=== PATIENT | female | born 1950 | race Caucasian/White ===

== ENCOUNTER → 2016-07-18 | Outpatient (CLI) | payer OTHER, BC | LOC: BMCIMAGING 08:25 | DX: Z12.31 Encounter for screening mammogram for malignant neoplasm of breast (principal) | CPT/HCPCS: G0202 ==

== ENCOUNTER → 2016-07-29 | Outpatient (CLI) | payer OTHER, BC | LOC: FIMAGING 12:57 | PROVIDERS: ATTEND Nurse Practitioner Adult Health | DX: N60.01 Solitary cyst of right breast (principal) ==

== ENCOUNTER 2017-02-19 11:17 | Inpatient (IN) | payer OTHER, BC ==
[2017-02-19] MEDS ORDERED: ACETAMINOPHEN 500 MG TAB PO ONE (11:40)
[2017-02-19] MEDS ORDERED: IBUPROFEN 600 MG TAB PO ONE (12:10)
--- NOTE | 2017-02-19 12:24 | EDPHY ---
H & P Smoking Status: Never smoked Time Seen by Provider: 02/19/17 12:00 HPI/ROS: CHIEF COMPLAINT: Fever, cough, dysuria HISTORY OF PRESENT ILLNESS: 67-year-old female presents to the emergency department by private vehicle complaining of fevers and chills that began yesterday. She started having rhinorrhea and nasal congestion since yesterday as well. She also developed a cough. She denies chest pain or difficulty breathing. She has not received a flu shot this year. No known ill contacts. No recent travel. No rash. She also reports dysuria, urgency and frequency with urination over last 2-3 days. She has been drinking a large amount of cranberry juice and water. She has never had a kidney stone in the past. No history of previous pyelonephritis. She does have some mild lower back discomfort. No abdominal pain. No vomiting. No chest pain or difficulty breathing. REVIEW OF SYSTEMS: Constitutional: Subjective fevers, chills Eyes: No double or blurry vision. ENT: No sore throat. Nasal congestion. Respiratory: Cough, no shortness of breath Cardiac: No chest pain. Gastrointestinal: No abdominal pain, vomiting or diarrhea. Genitourinary: Dysuria, urgency, frequency Musculoskeletal: No neck or back pain. Skin: No rashes. Neurological: No headache. (Jess Tate) Past Medical/Surgical History: Hypertension, hypothyroidism (Lea,Jess M) Social History: [facility] [place] [facility] Physical Exam: General Appearance: Alert, no distress. Initial temperature 39.3degrees, heart rate 101, 93% on room air. Eyes: Pupils equal and round. Extraocular motions are all intact. ENT: Mouth: Mucous membranes moist. Respiratory: No wheezing, rhonchi, or rales, lungs are clear to auscultation. Cardiovascular: Regular rate and rhythm. Gastrointestinal: Abdomen is soft and nontender, no masses, no rebound or guarding, bowel sounds normal. Mild left-sided CVA tenderness. No right-sided CVA tenderness. Neurological: Alert and oriented x 3, cranial nerves II through XII grossly intact Skin: Warm and dry, no rashes. Musculoskeletal: Nontender to palpate along the cervical, thoracic or lumbar spine. Neck is supple. Extremities: Full range of motion and no peripheral edema. Psychiatric: Patient is oriented X 3, there is no agitation. (Jess Tate) Constitutional: Initial Vital Signs Temperature (C) 39.3 C H 02/19/17 11:20 Heart Rate 101 H 02/19/17 11:20 Respiratory Rate 18 02/19/17 11:20 Blood Pressure 113/64 02/19/17 11:20 O2 Sat (%) 93 02/19/17 11:20 O2 Delivery Mode Room Air Allergies/Adverse Reactions: morphine Allergy (Mild, Verified 02/19/17 11:26) GI oxycodone [From Percocet] Allergy (Mild, Verified 02/19/17 11:26) GI Home Medications: Medication Instructions Recorded Aspirin EC [Aspirin EC 81 mg (*)] 81 mg PO HS 02/19/17 Cholecalciferol (Vitamin D3) 2,000 unit PO HS 02/19/17 [Vitamin D3] Cranberry Fruit Concentrate [Azo 250 mg PO DAILY 02/19/17 Cranberry] Cyanocobalamin (Vitamin B-12) 1,000 mcg PO HS 02/19/17 [B-12] Estrogens,Conjugated [Premarin 0.625 mg PO DAILY 02/19/17 0.625 MG (*)] Herbals/Supplements -Info Only 1 ea PO DAILY 02/19/17 Levothyroxine [Synthroid 125 mcg 125 mcg PO DAILY06 02/19/17 (*)] Lisinopril/Hydrochlorothiazide 1 tab PO DAILY 02/19/17 [Zestoretic 20-25 mg Tablet] Multivitamins [Multivitamin (*)] 1 each PO HS 02/19/17 guaiFENesin [Mucinex 600 MG (*)] 600 mg PO DAILY 02/19/17 Medical Decision Making - Diagnostics Imaging: I viewed and interpreted images myself ED Course/Re-evaluation: 67-year-old female presents to the emergency department with fever, URI symptoms and UTI symptoms. She was given 1000 mg of acetaminophen p.o. and 600 mg of ibuprofen p. o. for her fever. Chest x-ray is pending. Urinalysis pending. Influenza PCR has been ordered and is pending. Influenza was negative. Chest x-ray reveals possible left lower lobe pneumonia. Given the patient is febrile with elevated white blood cell count of over 22,000 and possible left lower lobe pneumonia, the patient will be admitted to the hospital to Dr. Robbi Landeros. Creatinine is elevated at 1.5. BUN is elevated 26. The case was discussed with Dr. Kenny Kincaid, secondary supervising physician, who did not directly evaluate the patient but agrees with treatment and plan. Still awaiting urine specimen. She received IV normal saline. Her lactate was normal at 1.2. Blood cultures are pending. The patient has subjective urinary frequency and urgency with urination. Patient was given Levaquin 750 mg IV. We tried for over 4 hours to wait for urinalysis. Patient does not feel she has to urinate. She did receive 1 L of IV normal saline in the emergency department. (Jess Tate) I did not see this patient while she was in the emergency department. However her care was discussed with the PA while the patient was in the department. I agree with treatment plan and management (Kenny Kincaid) Differential Diagnosis: Including but not limited to influenza, viral upper respiratory infection, bronchitis, pneumonia, urinary tract infection, pyelonephritis, kidney stone, sepsis (Jess Tate) - Data Points Laboratory Results: Laboratory Results 02/19/17 11:45 02/19/17 11:45 Microbiology Results: MICROBIOLOGY 02/19/17 14:20 Blood Blood Culture - Preliminary Gram Negative Rohit 02/19/17 11:45 Blood Blood Culture - Preliminary Gram Negative Rohit 02/19/17 11:45 Blood Blood Panel (PCR) - Final Escherichia Coli Medications Given: Acetaminophen (Tylenol) 650 mg PO Q4HRS PRN PRN Reason: Pain, Mild/Fever, Can Take PO Stop: 08/18/17 15:10 Last Admin: 02/20/17 22:26 Dose: 650 mg Aspirin Buffered (Aspirin Ec) 81 mg PO HS JAYLEN Stop: 08/19/17 20:59 Last Admin: 02/20/17 19:35 Dose: 81 mg Cholecalciferol (Vitamin D) 2,000 units PO HS JAYLEN Stop: 08/19/17 20:59 Last Admin: 02/20/17 19:35 Dose: 2,000 units Enoxaparin Sodium (Lovenox) 40 mg SC DAILY JAYLEN Stop: 08/19/17 08:59 Last Admin: 02/20/17 08:07 Dose: 40 mg Estrogens Conjugated (Premarin) 0.625 mg PO DAILY JAYLEN Stop: 08/19/17 08:59 Last Admin: 02/20/17 08:07 Dose: 0.625 mg Guaifenesin (Mucinex) 600 mg PO DAILY JAYLEN Stop: 08/19/17 08:59 Last Admin: 02/20/17 08:07 Dose: 600 mg Ceftriaxone Sodium 2 gm/ (Dextrose) 50 mls @ 100 mls/hr IV DAILY JAYLEN PRN Reason: Protocol Stop: 03/22/17 11:59 Last Admin: 02/20/17 12:00 Dose: 50 mls Levothyroxine Sodium (Synthroid) 125 mcg PO DAILY06 JAYLEN Stop: 08/19/17 05:59 Last Admin: 02/20/17 05:01 Dose: 125 mcg Miscellaneous Medication (Cranberry Fruit Concentrate [Azo Cranberry]) 250 mg PO DAILY JAYLEN Stop: 08/19/17 08:59 Last Admin: 02/20/17 08:08 Dose: Not Given Multivitamins (Tab-A-Selin) 1 each PO HS [facility] Stop: 08/19/17 20:59 Last Admin: 02/20/17 19:35 Dose: 1 each Ondansetron HCl (Zofran) 4 mg IVP Q4HRS PRN PRN Reason: Nausea/Vomiting, Can't Take PO Stop: 08/18/17 15:10 Last Admin: 02/19/17 18:09 Dose: 4 mg Vitamin B Complex (Vitamin B12) 1,000 mcg PO HS [facility] Stop: 08/19/17 20:59 Last Admin: 02/20/17 19:34 Dose: 1,000 mcg Discontinued Medications Acetaminophen (Tylenol) 1,000 mg PO EDNOW ONE Stop: 02/19/17 11:41 Last Admin: 02/19/17 11:45 Dose: 1,000 mg Sodium Chloride (Ns) 1,000 mls @ 0 mls/hr IV EDNOW ONE; Wide Open PRN Reason: Protocol Stop: 02/19/17 14:10 Last Admin: 02/19/17 14:14 Dose: 1,000 mls Levofloxacin/Dextrose (Levaquin 750 Mg (Premix)) 150 mls @ 100 mls/hr IV EDNOW ONE PRN Reason: Protocol Stop: 02/19/17 16:31 Last Admin: 02/19/17 15:41 Dose: 150 mls Potassium Chloride/Dextrose/Sod Cl (D5w 1/2 Ns W/ 20 Kcl/L) 1,000 mls @ 100 mls /hr IV CONT JAYLEN Stop: 08/18/17 15:14 Last Admin: 02/20/17 08:07 Dose: 1,000 mls Levofloxacin/Dextrose (Levaquin 500 Mg (Premix)) 100 mls @ 100 mls/hr IV DAILY JAYLEN PRN Reason: Protocol Stop: 03/22/17 08:59 Last Admin: 02/20/17 08:06 Dose: 100 mls Ibuprofen (Motrin) 600 mg PO EDNOW ONE Stop: 02/19/17 12:11 Last Admin: 02/19/17 12:55 Dose: 600 mg Influenza Virus Vaccine Quadrival (Fluarix Quad ) 0.5 ml IM .ONCE ONE Stop: 02/19/17 16:52 Last Admin: 02/19/17 17:28 Dose: 0.5 ml Departure - Departure Disposition: [facility] Inpatient Acute Clinical Impression: Pneumonia Qualifiers: Pneumonia type: due to unspecified organism Laterality: left Lung location: lower lobe of lung Qualified Code(s): J18.1 - Lobar pneumonia, unspecified organism Condition: Good
[2017-02-19 13:58] LABS: % IMMATURE GRANULYOCYTES 1.2 % (0.0-1.1); ABSOLUTE IMMATURE GRANULOCYTES 0.26 10^3/uL (0.00-0.10); ADD DIFF? NO; ADD MORPH? NO; ADD SCAN? NO; ATYPICAL LYMPHOCYTE FLAG 0 (0-99); FRAGMENT RBC FLAG 0 (0-99); HEMATOCRIT 38.9 % (38.0-47.0); HEMOGLOBIN 13.6 g/dL (12.6-16.3); LEFT SHIFT FLG 10 (0-99); LIPEMIA HEMOLYSIS FLAG 90 (0-99); MEAN CELL HEMOGLOBIN 30.6 pg (27.9-34.1); MEAN CELL VOLUME 87.4 fL (81.5-99.8); MEAN PLATELET VOLUME 11.3 fL (8.7-11.7); PLATELET CLUMPS FLAG 30 (0-99); PLATELET COUNT 207 10^3/uL (150-400); RED BLOOD CELL COUNT 4.45 10^6/uL (4.18-5.33); RED CELL DISTRIBUTION WIDTH 14.3 % (11.5-15.2)
[2017-02-19 14:07] LABS: ANION GAP 15 mEq/L (8-16); CALCIUM 9.4 mg/dL (8.5-10.4); CARBON DIOXIDE 19 mEq/l (22-31); CHLORIDE 100 mEq/L (97-110); CREATININE 1.5 mg/dL (0.6-1.0); GLOMERULAR FILTRATION RATE 35; GLUCOSE 128 mg/dL (70-100); POTASSIUM 3.5 mEq/L (3.5-5.2); SODIUM 134 mEq/L (134-144)
[2017-02-19] MEDS ORDERED: NS 1,000 ML IV ONE (14:09)
[2017-02-19] MEDS ORDERED: ONDANSETRON DISINTEGRATING 4 MG TAB PO PRN (15:11)
[2017-02-19] MEDS ORDERED: ZOLPIDEM TARTRATE 5 MG TAB PO PRN (15:11)
[2017-02-19] MEDS ORDERED: ONDANSETRON 4 MG/2 ML VIAL IVP PRN (15:11)
--- NOTE | 2017-02-19 16:16 | GHP ---
[f rep st] HISTORY AND PHYSICAL DATE OF ADMISSION: 02/19/2017 CHIEF COMPLAINT: Fever and achy all over. HISTORY OF PRESENT ILLNESS: The patient is a 67-year-old white female who began to get a stomach ache 4 day prior to admission. Later that evening, she had symptoms of a bladder infection, characterized by pain and stinging when she urinated and urinary frequency almost every hour. She has had one bladder infection before in her life, and this felt the same. She took a laxative and had a bowel movement and that did help her stomach ache, but she continued to have urinary symptoms. Three days prior to admission, she started herself on qjsv-avy-lkduqhj cranberry tablets. That seemed to be helping a little, but she continued to have mild urinary symptoms. Then, 1 day prior to admission, she developed fever, chills, and generally felt worse. Her whole body was aching yesterday with fever and chills and occasional sweats. She also started getting a cough yesterday that was minimally productive. Last night, she woke frequently to urinate. Her cough is just a bit better today. It is dry and hacking. Her main complaint continues to be aching all over with fever and occasional chills. PAST MEDICAL HISTORY: Significant for: 1. Allergic rhinitis for which she used allergy medications frequently. 2. Hysterectomy. 3. Knee surgery bilaterally. 4. Shoulder surgery. 5. Postoperative hypoxia after shoulder surgery in 2009, requiring and overnight hospitalization after the surgery to monitor her oxygen level. 6. x3. 7. Hypothyroidism. 8. Hypertension. MEDICATIONS: Synthroid 0.125 mg daily, lisinopril HCT 20/25 daily, Premarin 0.625 mg daily, Zyrtec and Mucinex frequently. SOCIAL HISTORY: She lives at home with her . She has 3 children, all of whom live in [place]. She has several grandchildren. She is retired from the [employer]. She is a never-smoker. She has alcohol once or twice a month when she goes out to dinner. FAMILY HISTORY: Her father of leukemia. Her mother at age 82 of a blood clot in the hospital after being hospitalized for over a week. REVIEW OF SYSTEMS: CONSTITUTIONAL: Weight is stable. NEUROLOGIC: She has had a low-grade headache for the last few days, but nothing severe. ENT: Denies sinus congestion recently. Denies sore throat. RESPIRATORY: Has the cough mentioned above, but no shortness of breath. CARDIOVASCULAR: Denies chest pain or heart palpitations. GI: Has had some mild nausea and vomited once yesterday after she took some sort of akjz-ste-eazwcri medication that bothered her stomach. Low-grade nausea has persisted today and she has not eaten anything today. No diarrhea or constipation. : See HPI. MUSCULOSKELETAL: She has diffuse muscle aching. SKIN: She denies any rashes. NEUROLOGIC: She denies any focal neurologic deficits or lightheadedness. PHYSICAL EXAMINATION: GENERAL: She is a well-developed, woman who is lying on a gurney in the Emergency Department and does not appear to be in any acute distress. VITAL SIGNS: Blood pressure 113/64, heart rate 101, respiratory rate 18, oxygen saturation is 93% on room air, and a couple of hours later was 98% on room air, temperature 39.3 at the time of presentation to this emergency room. HEENT: Eyes: Pupils equal, round and reactive to light, conjunctivae are pink. Throat, mouth, oropharynx are benign. NECK: Supple without adenopathy or thyromegaly. LUNGS: Clear. HEART: Regular without murmur. ABDOMEN: Soft, nontender without masses or bruits. Bowel sounds are normoactive. EXTREMITIES: No edema. MUSCULOSKELETAL: She has no swollen joints and moves all extremities without problem. NEUROLOGIC: She is alert and oriented. Has no focal neurologic deficits. BACK: She has left CVA tenderness. There is no tenderness when I just palpate the muscle in that area , but only when I bang the area with my fist. SKIN: Warm and dry. DATABASE: Chest x-ray does not show any obvious acute findings to my eye. Radiologist notes that left basilar atelectasis "is suspected." Her WBC is significantly elevated at 22,000. Hemoglobin 13.6, platelets 207,000. Sodium is 134, potassium 3.5, chloride 100, CO2 19, BUN 26, creatinine 1.5, glucose 128. Flu swab is negative. lactate level is 1.2. Urinalysis is not yet available. IMPRESSION: 1. Sepsis based on high fever, elevated WBC, and typical symptoms. Likely source is her urine. She has been unable to urinate since arriving in the Emergency Department. She is culture receiving IV fluids. I anticipate starting Levaquin after she is able to give a urine sample. I cannot absolutely rule out a left lower lobe pneumonia as the source of her infection, but she is not at all hypoxemic and on my exam her lungs sound normal. She does not have pleuritic pain in the left flank area, but does have pain to percussion, which suggests to me that the source is more likely to be urinary tract infection than pneumona. 2. Suspect pyelonephritis. 3. Acute kidney injury with a mildly elevated creatinine. I do not have a baseline accessible to me. We will treat this with IV fluids. 4. History of hypertension. Hold blood pressure medications for now, since her blood pressure is excellent and she is moderately dehydrated. 5. Hypothyroidism, chronic. 6. Resuscitation status: She is full code. /[id number]/MODL MTDD
[2017-02-19] MEDS ORDERED: FLU VACC QS 2017-18 (3YR+)/PF 0.5 ML SYR (FLUARIX QUAD) IM ONE (16:51)
[2017-02-19] MEDS: D5W 1/2 NS W/ 20 KCl/L 1,000 ML IV SCH (17:30)
[2017-02-19 18:39] LABS: COLOR YELLOW; LEUKOCYTE ESTERASE,URINE 2+ (NEGATIVE); NITRITE,URINE NEGATIVE (NEGATIVE)
[2017-02-19 18:47] LABS: BACTERIA 4+ /hpf (NONE SEEN); RBC,URINE 25-50 /hpf (0-3); WBC,URINE 50-182 /hpf (0-3)
[2017-02-19] MEDS: ACETAMINOPHEN 325 MG TAB PO PRN (20:28)
[2017-02-20] MEDS: D5W 1/2 NS W/ 20 KCl/L 1,000 ML IV SCH ×2 (03:06→08:07)
[2017-02-20] MEDS: LEVOTHYROXINE 125 MCG TAB PO SCH (05:01)
[2017-02-20 05:17] LABS: % IMMATURE GRANULYOCYTES 0.8 % (0.0-1.1); ABSOLUTE IMMATURE GRANULOCYTES 0.12 10^3/uL (0.00-0.10); ADD DIFF? NO; ADD MORPH? NO; ADD SCAN? NO; ATYPICAL LYMPHOCYTE FLAG 0 (0-99); FRAGMENT RBC FLAG 10 (0-99); HEMATOCRIT 32.2 % (38.0-47.0); HEMOGLOBIN 10.8 g/dL (12.6-16.3); LEFT SHIFT FLG 20 (0-99); LIPEMIA HEMOLYSIS FLAG 80 (0-99); MEAN CELL HEMOGLOBIN 29.6 pg (27.9-34.1); MEAN CELL HEMOGLOBIN CONCENTR. 33.5 g/dL (32.4-36.7); MEAN CELL VOLUME 88.2 fL (81.5-99.8); MEAN PLATELET VOLUME 10.4 fL (8.7-11.7); PLATELET CLUMPS FLAG 0 (0-99); PLATELET COUNT 162 10^3/uL (150-400); RED BLOOD CELL COUNT 3.65 10^6/uL (4.18-5.33); RED CELL DISTRIBUTION WIDTH 14.1 % (11.5-15.2)
[2017-02-20 05:18] LABS: ALANINE AMINOTRANSFERASE 27 IU/L (9-52); ALBUMIN 2.7 g/dL (3.5-5.0); ALKALINE PHOSPHATASE 68 IU/L (38-126); ANION GAP 10 mEq/L (8-16); ASPARTATE AMINOTRANSFERASE 18 IU/L (14-46); BILIRUBIN,TOTAL 0.8 mg/dL (0.1-1.4); CALCIUM 7.8 mg/dL (8.5-10.4); CARBON DIOXIDE 21 mEq/l (22-31); CHLORIDE 99 mEq/L (97-110); CREATININE 1.5 mg/dL (0.6-1.0); GLOMERULAR FILTRATION RATE 35; GLUCOSE 121 mg/dL (70-100); POTASSIUM 3.6 mEq/L (3.5-5.2); SODIUM 130 mEq/L (134-144); TOTAL PROTEIN 5.5 g/dL (6.3-8.2)
[2017-02-20] MEDS: ENOXAPARIN 40 MG/0.4 ML SYR SC SCH (08:07)
[2017-02-20] MEDS: ESTROGENS,CONJUGATED 0.625 MG TAB PO SCH (08:07)
[2017-02-20] MEDS: guaiFENesin 600 MG TAB.ER PO SCH (08:07)
[2017-02-20] MEDS: CRANBERRY FRUIT 250 MG PO SCH (08:08)
--- NOTE | 2017-02-20 08:27 | HOSPPROG ---
Hospitalist Progress Note Assessment/Plan: patient is a 67-year-old female who presented the emergency room with fever and body aches. 3 days prior to admission she started vykh-qcg-lyoatqo cranberry tablets and seem to help. Today is my 1st encounter with the patient. Chart reviewed. * Sepsis likely the source is her urine leukocytosis has improved with antibiotics * E coli bacteremia blood culture is showing gram-negative rods in both bottles will ask Infectious Disease to get involved with her care * pyelonephritis On Levaquin awaiting sensitivities * acute kidney injury creatinine is 1.5 baseline is 0.7 likely due to hypotension avoid any nephrotoxic agents * hypertension currently hypotensive will hold bp meds * hyponatremia follow * anemia lower than her baseline but could also be dilutional * hyperglycemia stress induced * DVT prophylaxis low-molecular weight heparin Subjective: Carmen is feeling better since being admitted Objective: Vital Signs Temp Pulse Resp BP Pulse Ox 36.9 C 75 14 85/52 L 98 02/20/17 03:24 02/20/17 03:24 02/20/17 03:24 02/20/17 03:24 02/20/17 03:24 Laboratory Results 02/20/17 04:55 02/20/17 04:55 02/19/17 02/20/17 02/21/17 05:59 05:59 05:59 Intake Total 2506 Output Total 1550 Balance 956 - Physical Exam Constitutional: no apparent distress, appears nourished, not in pain Eyes: PERRL Ears, Nose, Mouth, Throat: hearing normal Cardiovascular: regular rate and rhythym, no murmur, rub, or gallop Respiratory: no respiratory distress Gastrointestinal: normoactive bowel sounds Skin: warm, normal color Musculoskeletal: full muscle strength Neurologic: AAOx3 Psychiatric: interacting appropriately, not anxious ICD10 Worksheet Patient Problems: Problems Problem Status Onset Pneumonia Acute
[2017-02-20] MEDS ORDERED: CRANBERRY FRUIT 250 MG PO SCH (09:00)
[2017-02-20] MEDS ORDERED: ENOXAPARIN 30 MG/0.3 ML SYR SC SCH (09:00)
[2017-02-20] MEDS ORDERED: levOFLOXACIN 500 MG/DEXTROSE 100 ML IV SCH (09:00)
[2017-02-20] MEDS: ACETAMINOPHEN 325 MG TAB PO PRN ×3 (10:10→22:26)
[2017-02-20] MEDS: cefTRIAXone 2 GM in D5W 50 ML IV SCH (12:00)
--- NOTE | 2017-02-20 13:19 | GCON ---
[f rep st] CONSULTATION INFECTIOUS DISEASE CONSULTATION DATE OF CONSULTATION: 02/20/2017 REQUESTING PROVIDER: Chiquita Viera, Nurse Practitioner. REASON FOR CONSULTATION: E coli sepsis. HISTORY OF PRESENT ILLNESS: Patient is a 67-year-old female with a past medical history of hypertens ion and remote urinary tract infection, who I am asked to see in consultation for sepsis associated w ith E coli bacteremia. The patient describes developing "stomach pain" last week. She describes thi s as being pain in her left lower quadrant. This was followed by symptoms of dysuria and urinary erasto quency. Subsequently, she developed fever and shaking chills, with associated nausea and limited ora l intake. She does not describe having vomiting or diarrhea. Based on the presence of fever and sha stephanie chills, she sought care in the emergency department yesterday. Evaluation revealed a white coun t of 22,000, with urinalysis showing 25 to 50 red blood cells and 50 to 182 white blood cells, with 4 + bacteria. Flu testing by PCR was negative. Blood cultures obtained at the time of admission are n ow showing 2 of 2 sets with E coli. The patient is receiving empiric levofloxacin. She notes that s he does not feel any significant clinical improvement since the time of admission. She describes hav ing a past episode of uncomplicated UTI approximately 20 years ago. Venous lactate obtained yesterda y was 1.2. Given the above findings, I am now asked to assist in her ongoing management. PAST MEDICAL HISTORY: Hypertension, hypothyroidism, UTI. PAST SURGICAL HISTORY: Hysterectomy, , knee surgery, shoulder surgery. CURRENT MEDICATIONS: Levofloxacin 500 mg IV daily, aspirin 81 mg p.o. daily, Lovenox 40 mg subcu mac ly, vitamin D 2000 units p.o. q.h.s., Premarin 0.625 mg p.o. daily, Mucinex 600 mg p.o. daily, Synthr oid 125 mcg p.o. daily, AZO cranberry p.o. daily, multivitamin p.o. daily, vitamin B12 1000 mcg p.o. q.h.s. ALLERGIES: Morphine and oxycodone associated with vomiting, which represents intolerance rather than allergy. SOCIAL HISTORY: Patient does not smoke, drink alcohol, or use drugs. FAMILY HISTORY: Father of leukemia. REVIEW OF SYSTEMS: Outside that noted in the HPI, the remainder of 10-system review is unremarkable, except for some relief of symptoms noted with use of AZO cranberry acot-zvm-qsovlpr, as well as some symptoms of bronchitis which she typically has on a long-term basis. PHYSICAL EXAMINATION: VITAL SIGNS: Temperature maximum 39.3, temperature current 37.2, heart rate 8 4, respiratory rate 16, blood pressure 1/63, oxygen saturation 93% on 1 L. GENERAL: Patient is well nourished, well developed, with fatigued appearance; she appears nontoxic. HEENT: There is no scle ral icterus, conjunctival injection, or conjunctival petechiae. Oropharynx shows slightly dry mucous membranes. Dentition is in fair repair. There is no nasal discharge. There is no tenderness over the frontal, maxillary, or mastoid area. NECK: Supple without palpable lymphadenopathy or thyromega ly. CHEST: Clear to auscultation bilaterally without adventitious sounds. Respiratory effort is no rmal. CARDIOVASCULAR: Regular rate and rhythm without murmurs, gallops, or rubs. ABDOMEN: Soft, n ontender, nondistended. There is no palpable organomegaly. Bowel sounds are present. BACK: There is left-sided CVA tenderness present. MUSCULOSKELETAL: There is no cyanosis, clubbing, or edema. S KIN: No rashes are present. The skin is diffusely warm to palpation. There is mild diaphoresis pre sent. There are no stigmata of endocarditis. LYMPHATICS: No cervical or supraclavicular nodes palp able. NEUROLOGIC: Patient is alert and interacts appropriately examiner. Cranial nerves 2 through 12 are grossly intact. Sensation is grossly intact. Muscle tone and bulk are normal. LABORATORY DATA: White blood cell count 14.7, hematocrit 32.2, platelets 162, neutrophils 80%, lymph ocytes 12%. Serum creatinine is 1.5. AST 18, ALT 27, bilirubin 0.8, alkaline phosphatase 68, albumi n 2.7. Urinalysis as outlined in the History of Present Illness. Flu by PCR is negative. Venous la ctate is 1.2. Chest x-ray shows left basilar atelectasis. Blood culture showing 2 of 2 sets with E coli; urine culture was not obtained. IMPRESSION: Sepsis due to Escherichia coli bacteremia, likely associated with left-sided pyelonephri tis: Clinical findings are most compatible with left-sided pyelonephritis. Blood cultures now show both sets with Escherichia coli, which would be typical for this entity. Given local antibiogram, wi ll change levofloxacin to ceftriaxone while susceptibilities are pending, given lower likelihood of d ecreased ceftriaxone susceptibility based on local antibiogram. The patient did initially have left lower quadrant pain, which also places diverticulitis in the differential diagnosis, although suspect this pain was more likely associated pyelonephritis, given presence of costovertebral angle tenderne ss. RECOMMENDATIONS: 1. Ceftriaxone 2 g IV q.24 hours pending blood culture susceptibility. 2. Discontinue levofloxacin. 3. Follow clinical response to above measures. 4. Clinical findings and treatment plan were reviewed with patient and today. Thank you for this consultation. We will continue to follow the patient with you. /[id number]/MODL
--- NOTE | 2017-02-20 15:08 | ASMTCMCOM ---
CM Note CM Note Notes: Pt is a 67 y/o female admitted w/ fever and PNA. Pt has sepsis and currently being treated w/ caftriaxone. Pt will most likely discharge independent when medically stable w/ supportive . No therapies ordered at this time. CM available for changes. Date Signed: 02/20/2017 03:08 PM Electronically Signed By:MANDY Mccormack
[2017-02-20] MEDS: CYANO/VITAMIN B12 1000 MCG TAB PO SCH (19:34)
[2017-02-20] MEDS: CHOLECALCIFEROL VIT D3 2,000 UNITS TAB/CAP PO SCH (19:35)
[2017-02-20] MEDS: MULTIVITAMINS 1 EACH TAB PO SCH (19:35)
[2017-02-20] MEDS: ASPIRIN EC 81 MG TAB PO SCH (19:35)
[2017-02-20] MEDS ORDERED: NON-FORMULARY NEW DRUG (Cholecalciferol (Vitamin D3) [Vitamin D3] 2,000 UNIT) PO SCH (21:00)
[2017-02-20] MEDS ORDERED: NON-FORMULARY NEW DRUG (Cyanocobalamin (Vitamin B-12) [B-12] 1,000 MCG) PO SCH (21:00)
[2017-02-21] MEDS ORDERED: traMADol 50 MG TAB PO PRN (00:31)
[2017-02-21] MEDS: NS 1,000 ML IV SCH ×2 (00:52→09:36)
[2017-02-21] MEDS: LEVOTHYROXINE 125 MCG TAB PO SCH (04:42)
[2017-02-21 04:48] LABS: % IMMATURE GRANULYOCYTES 0.8 % (0.0-1.1); ABSOLUTE IMMATURE GRANULOCYTES 0.06 10^3/uL (0.00-0.10); ADD DIFF? NO; ADD MORPH? NO; ADD SCAN? NO; ATYPICAL LYMPHOCYTE FLAG 0 (0-99); FRAGMENT RBC FLAG 0 (0-99); HEMATOCRIT 30.9 % (38.0-47.0); HEMOGLOBIN 10.5 g/dL (12.6-16.3); LEFT SHIFT FLG 10 (0-99); LIPEMIA HEMOLYSIS FLAG 90 (0-99); MEAN CELL HEMOGLOBIN 29.7 pg (27.9-34.1); MEAN CELL VOLUME 87.5 fL (81.5-99.8); MEAN PLATELET VOLUME 10.8 fL (8.7-11.7); PLATELET CLUMPS FLAG 20 (0-99); PLATELET COUNT 150 10^3/uL (150-400); RED BLOOD CELL COUNT 3.53 10^6/uL (4.18-5.33); RED CELL DISTRIBUTION WIDTH 14.1 % (11.5-15.2)
[2017-02-21 04:57] LABS: ANION GAP 6 mEq/L (8-16); CALCIUM 8.6 mg/dL (8.5-10.4); CARBON DIOXIDE 21 mEq/l (22-31); CHLORIDE 106 mEq/L (97-110); CREATININE 1.1 mg/dL (0.6-1.0); GLOMERULAR FILTRATION RATE 50; GLUCOSE 97 mg/dL (70-100); POTASSIUM 3.9 mEq/L (3.5-5.2); SODIUM 133 mEq/L (134-144)
[2017-02-21] MEDS: cefTRIAXone 2 GM in D5W 50 ML IV SCH (09:21)
[2017-02-21] MEDS: guaiFENesin 600 MG TAB.ER PO SCH (09:36)
[2017-02-21] MEDS: ESTROGENS,CONJUGATED 0.625 MG TAB PO SCH (09:39)
[2017-02-21] MEDS: ENOXAPARIN 40 MG/0.4 ML SYR SC SCH (09:43)
--- NOTE | 2017-02-21 09:58 | PCMIDPN ---
Assessment/Plan: Assessment/plan: 1. E. coli sepsis likely secondary to left Pyelonephritis: - Awaiting sensitivities on E. coli - currently on Cefriaxone - Wbc improved -Clinically improved today as well - Reviewed lab results and pending data with patient - Creatinine improved Meds Ceftraixone 2g daily-02/20/17 Subjective: Aebrile. Feels better today than last night. lasst night had nausea, abd pain and generally wasn't feeling well. Today had light breakfast. dry cough. denies sob. denies diarrhea. Objective: Vital Signs Temp Pulse Resp BP Pulse Ox 37.1 C 71 20 101/61 97 02/21/17 07:29 02/21/17 07:29 02/21/17 07:29 02/21/17 07:29 02/21/17 07:29 Laboratory Results 02/21/17 04:31 02/21/17 04:31 02/20/17 02/21/17 02/22/17 05:59 05:59 05:59 Intake Total 2506 0 Output Total 1550 600 Balance 956 -600 - Physical Exam General Appearance: alert, no apparent distress Respiratory: lungs clear Cardiac/Chest: regular rate, rhythm Extremities: No swelling Abdomen: normal bowel sounds, non-tender, soft, No distended Back: No CVA tenderness Skin: No erythema ICD10 Worksheet Patient Problems: Problems Problem Status Onset Pneumonia Acute
[2017-02-21] MEDS: ACETAMINOPHEN 325 MG TAB PO PRN ×3 (10:12→20:41)
[2017-02-21] MEDS: CRANBERRY FRUIT 250 MG PO SCH (10:46)
--- NOTE | 2017-02-21 10:48 | HOSPPROG ---
Hospitalist Progress Note Assessment/Plan: patient is a 67-year-old female who presented the emergency room with fever and body aches. 3 days prior to admission she started choc-jma-sibkiws cranberry tablets and seem to help. * Sepsis likely the source is her urine leukocytosis has improved with antibiotics * E coli bacteremia Ceftriaxone #2 * pyelonephritis/left sided * acute kidney injury much improved w hydration creat is 1.1 * hypertension bp is low *Hypotension will give her a bolus of normal saline *constipation * hyponatremia improved w normal saline * anemia lower than her baseline l * hyperglycemia resolved * DVT prophylaxis low-molecular weight heparin Subjective: Carmen is feeling better today. Objective: Vital Signs Temp Pulse Resp BP Pulse Ox 37.1 C 71 20 101/61 97 02/21/17 07:29 02/21/17 07:29 02/21/17 07:29 02/21/17 07:29 02/21/17 07:29 Laboratory Results 02/21/17 04:31 02/21/17 04:31 02/20/17 02/21/17 02/22/17 05:59 05:59 05:59 Intake Total 2506 0 Output Total 1550 600 Balance 956 -600 - Physical Exam Constitutional: no apparent distress, appears nourished, not in pain Eyes: PERRL Ears, Nose, Mouth, Throat: hearing normal Cardiovascular: regular rate and rhythym Respiratory: no respiratory distress Gastrointestinal: normoactive bowel sounds Skin: warm Musculoskeletal: full muscle strength Neurologic: AAOx3 Psychiatric: interacting appropriately ICD10 Worksheet Patient Problems: Problems Problem Status Onset Pneumonia Acute
[2017-02-21] MEDS ORDERED: NS 250 ML IV ONE (12:26)
[2017-02-21] MEDS ORDERED: LACTULOSE 20 GM/30 ML UDCUP PO PRN (12:27)
[2017-02-21] MEDS ORDERED: BISACODYL 10 MG SUPP PR PRN (12:27)
[2017-02-21] MEDS: POLYETHYLENE GLYCOL 3350 17 GM PKT PO SCH (13:10)
[2017-02-21] MEDS: MULTIVITAMINS 1 EACH TAB PO SCH (20:42)
[2017-02-21] MEDS: CYANO/VITAMIN B12 1000 MCG TAB PO SCH (20:42)
[2017-02-21] MEDS: ASPIRIN EC 81 MG TAB PO SCH (20:42)
[2017-02-21] MEDS: CHOLECALCIFEROL VIT D3 2,000 UNITS TAB/CAP PO SCH (20:42)
[2017-02-21] MEDS: SENNOSIDES/DOCUSATE SODIUM TAB PO SCH (21:38)
[2017-02-22] MEDS: ACETAMINOPHEN 325 MG TAB PO PRN ×4 (00:58→20:05)
[2017-02-22 05:17] LABS: ANION GAP 8 mEq/L (8-16); CALCIUM 8.9 mg/dL (8.5-10.4); CARBON DIOXIDE 21 mEq/l (22-31); CHLORIDE 108 mEq/L (97-110); GLOMERULAR FILTRATION RATE 55; GLUCOSE 92 mg/dL (70-100); POTASSIUM 3.9 mEq/L (3.5-5.2); SODIUM 137 mEq/L (134-144)
[2017-02-22] MEDS: LEVOTHYROXINE 125 MCG TAB PO SCH (06:44)
[2017-02-22] MEDS: cefTRIAXone 2 GM in D5W 50 ML IV SCH (08:24)
[2017-02-22] MEDS: guaiFENesin 600 MG TAB.ER PO SCH (08:25)
[2017-02-22] MEDS: SENNOSIDES/DOCUSATE SODIUM TAB PO SCH ×2 (08:25→20:05)
[2017-02-22] MEDS: ESTROGENS,CONJUGATED 0.625 MG TAB PO SCH (08:25)
[2017-02-22] MEDS: CRANBERRY FRUIT 250 MG PO SCH (08:33)
[2017-02-22] MEDS: ENOXAPARIN 40 MG/0.4 ML SYR SC SCH (09:00)
[2017-02-22] MEDS: POLYETHYLENE GLYCOL 3350 17 GM PKT PO SCH (10:01)
--- NOTE | 2017-02-22 10:51 | HOSPPROG ---
Hospitalist Progress Note Assessment/Plan: patient is a 67-year-old female who presented the emergency room with fever and body aches. 3 days prior to admission she started [id number] cranberry tablets and seem to help. * Sepsis source is her urine leukocytosis has improved with antibiotics * E coli bacteremia Ceftriaxone #3 * pyelonephritis/left sided * acute kidney injury much improved w hydration creat is 1.0 * hypertension stable *Hypotension resolved *constipation resolved * hyponatremia improved w normal saline * anemia lower than her baseline l * hyperglycemia resolved * DVT prophylaxis low-molecular weight heparin *Plan: reviewed her care with Dr Thrasher/ ce daly today oral abx Subjective: Carmen is feeling much better today. no complaints. Objective: Vital Signs Temp Pulse Resp BP Pulse Ox 37.2 C 71 16 109/69 97 02/22/17 07:55 02/22/17 07:55 02/22/17 07:55 02/22/17 07:55 02/22/17 07:55 Laboratory Results 02/21/17 04:31 02/22/17 04:35 02/21/17 02/22/17 02/23/17 05:59 05:59 05:59 Intake Total 0 Output Total 600 1500 Balance -600 -1500 - Physical Exam Constitutional: no apparent distress, appears nourished, not in pain Eyes: PERRL Ears, Nose, Mouth, Throat: hearing normal Cardiovascular: regular rate and rhythym Respiratory: no respiratory distress Gastrointestinal: normoactive bowel sounds Skin: warm Musculoskeletal: full muscle strength Neurologic: AAOx3 Psychiatric: interacting appropriately ICD10 Worksheet Patient Problems: Problems Problem Status Onset Pneumonia Acute
--- NOTE | 2017-02-22 13:52 | PCMIDPN ---
Assessment/Plan: Assessment/Plan: * Sepsis due to E coli bacteremia associated with probable left-sided pyelonephritis: Marked clinical improvement with antibiotic therapy. Febrile yesterday afternoon without recurrent fever today. White blood cell count has normalized. Blood cultures show hurst susceptible E coli. Plan 7 days of levofloxacin 750 mg orally daily to complete therapy. If continuing to tolerate oral intake and feeling improved, think can be discharged this afternoon with follow-up in my office next week. Findings and plan reviewed with patient and Chiquita Viera NP. 02/22/17 13:48 Subjective: Feels much better after having fever yesterday afternoon. Tolerated breakfast well without nausea or vomiting. Left flank pain resolved. Objective: Vital Signs Temp Pulse Resp BP Pulse Ox 36.9 C 67 16 121/83 H 97 02/22/17 11:06 02/22/17 11:06 02/22/17 11:06 02/22/17 11:06 02/22/17 11:06 Laboratory Results 02/21/17 04:31 02/22/17 04:35 02/21/17 02/22/17 02/23/17 05:59 05:59 05:59 Intake Total 0 Output Total 600 1500 Balance -600 -1500 Ceftriaxone # 2 Blood cultures E coli which is hurst susceptible Tm 39.4 - Physical Exam General Appearance: alert, no apparent distress EENT: No scleral icterus, No conjunctival petechiae Cardiac/Chest: regular rate, rhythm Abdomen: non-tender, No distended Back: No CVA tenderness ICD10 Worksheet Patient Problems: Problems Problem Status Onset Pneumonia Acute
[2017-02-22] MEDS ORDERED: CEPACOL LOZENGE PO PRN (15:37)
[2017-02-22] MEDS: MULTIVITAMINS 1 EACH TAB PO SCH (20:05)
[2017-02-22] MEDS: CHOLECALCIFEROL VIT D3 2,000 UNITS TAB/CAP PO SCH (20:06)
[2017-02-22] MEDS: ASPIRIN EC 81 MG TAB PO SCH (20:06)
[2017-02-22] MEDS: CYANO/VITAMIN B12 1000 MCG TAB PO SCH (20:06)
[2017-02-23] MEDS: ACETAMINOPHEN 325 MG TAB PO PRN (02:57)
[2017-02-23] MEDS: LEVOTHYROXINE 125 MCG TAB PO SCH (05:48)
[2017-02-23 07:53] VITALS: BP 123/65; RESP 18; O2SAT 96
[2017-02-23 07:58] VITALS: PULSE 64; TEMP 98
[2017-02-23] MEDS: cefTRIAXone 2 GM in D5W 50 ML IV SCH (09:42)
[2017-02-23] MEDS: ESTROGENS,CONJUGATED 0.625 MG TAB PO SCH (09:43)
[2017-02-23] MEDS: ENOXAPARIN 40 MG/0.4 ML SYR SC SCH (09:43)
[2017-02-23] MEDS: CRANBERRY FRUIT 250 MG PO SCH (09:43)
[2017-02-23] MEDS: guaiFENesin 600 MG TAB.ER PO SCH (09:44)
[2017-02-23] MEDS: POLYETHYLENE GLYCOL 3350 17 GM PKT PO SCH (09:46)
[2017-02-23] MEDS: SENNOSIDES/DOCUSATE SODIUM TAB PO SCH (09:46)
--- NOTE | 2017-02-23 13:35 | GDS ---
[f rep st] DISCHARGE SUMMARY DISCHARGE DIAGNOSES: 1. Sepsis. 2. Escherichia coli bacteremia. 3. Pyelonephritis. 4. Acute kidney injury. 5. Hypertension. 6. Hypotension. 7. Hyponatremia. 8. Anemia. 9. Hyperglycemia. CONSULTATIONS: Infectious Disease. STUDIES/PROCEDURES DONE: Chest x-ray. PHYSICAL EXAMINATION: GENERAL: The patient is alert. VITAL SIGNS: Afebrile at 36.9, pulse 69, res piratory rate 15, blood pressure is 121/69, she is saturating greater than 90% on room air. I have s een and evaluated the patient on the day of discharge. HOSPITAL COURSE: The patient is a 67-year-old female, presents to the emergency room with complaints of fever and body aches. She was evaluated and diagnosed with: 1. Sepsis. During this hospitalization, she was treated appropriately, and her sepsis has resolved. 2. E coli bacteremia. This is in the setting of pyelonephritis. She has been treated with IV Rocep hin during this hospital course and transitioned to oral Levaquin at the time of disposition. She di d receive a consultation from Infectious Disease. Her urine culture is growing a pansensitive E coli , and she will follow up with Dr. Thrasher in the outpatient setting. 3. Acute kidney injury. This has responded well to hydration. 4. Hypertension. This is stable. 5. Hyponatremia. This has responded well to hydration in the setting of hypovolemia. DISPOSITION: The patient will be discharged home independently. There are no pending studies. DISCHARGE MEDICATIONS: Please refer to EMR form. I have provided the patient a prescription for Lev aquin 750 mg daily, #7 at the time of disposition. FOLLOWUP: Followup will be with Dr. Thrasher, as well as the patient's primary provider, Peggy Kevin NP. I spent greater than 35 minutes in the care, coordination, and management of the patient's dispositio n. /[id number]/MODL
--- NOTE | 2017-02-23 14:52 | ASDISCHSUM ---
Discharge Information Plan Status:Home with No Needs Medically Cleared to Leave: Discharge Date:02/23/2017 12:05 PM D/C Disposition:Home, Routine, Self-Care ADT D/C Disposition:Home, Routine, Self-Care Projected Discharge Date:02/22/2017 12:00 AM Transportation at D/C: Discharge Delay Reason: Follow-Up Date:02/22/2017 12:00 AM Discharge Slot: Final Diagnosis: Placement Information Patient Contact Information Contact Name:LORRAINE Relationship: Address:[address] [place] [address] City:[place] Phone: [facility]/Zip Code:[place] [address] Email: Financial Information Financial Class: Primary Plan Desc:MEDICARE INPATIENT Primary Plan Number:[id number] Secondary Plan Desc:[facility] Secondary Plan Number:[id number] Assessment Information [facility] CM Progress Note CM Note CM Note Notes: Pt is a 67 y/o female admitted w/ fever and PNA. Pt has sepsis and currently being treated w/ caftriaxone. Pt will most likely discharge independent when medically stable w/ supportive . No therapies ordered at this time. CM available for changes. Date Signed: 02/20/2017 03:08 PM Electronically Signed By:MANDY Mccormack Intervention Information Intervention Type:*Incorrect Registration Date of Service:02/19/2017 03:11 PM Patient Type:Inpatient Staff Member:MIHAI Grant Shelly Hours:0.25 Discipline: Severity:1 (0-1 Hours) Comment:Registered observation, admit order wr constanzaen inpatient status. Intervention Type:*IM-Signed Date of Service:02/23/2017 11:01 AM Patient Type:Inpatient Staff Member:Christal Rodriguez Hours: Discipline: Severity: Comment:
== END 2017-02-23 12:05 | disposition home or self-care (01) | DRG 872 ==
LOC: OBSVTOIN 15:11 → F3E 15:45
PROVIDERS: ADMIT Internal Medicine; ATTEND Internal Medicine
DX: A41.51 Sepsis due to Escherichia coli [E. coli] (principal); N12 Tubulo-interstitial nephritis, not specified as acute or chronic; N17.9 Acute kidney failure, unspecified; E87.1 Hypo-osmolality and hyponatremia; I10 Essential (primary) hypertension; D64.9 Anemia, unspecified; R73.9 Hyperglycemia, unspecified; E03.9 Hypothyroidism, unspecified; K59.00 Constipation, unspecified
CPT/HCPCS: G0008; J0696; J1650; J1956; J2405

== ENCOUNTER 2017-06-06 13:34 | Emergency (ER) | payer OTHER, BC ==
[2017-06-06 13:41] VITALS: BP 148/82; PULSE 70; RESP 16; TEMP 98.1; O2SAT 95
--- NOTE | 2017-06-06 14:30 | EDPHY ---
H & P Time Seen by Provider: 06/06/17 13:44 HPI/ROS: CHIEF COMPLAINT: Left foot redness and swelling HISTORY OF PRESENT ILLNESS: Patient has a significant family history of gout with all 3 brothers positive. She had symptoms since last Monday 4 days ago starting in her left great toe MTP with swelling redness and pain. The swelling has spread to the dorsum and lateral side of the foot but not up into the leg. 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 No chest pain or shortness of breath and no fever or chills. No recent injury or trauma. No lymphangitis. REVIEW OF SYSTEMS: As above, chronic left knee pain unchanged PAST MEDICAL HISTORY: Negative for diabetes. Has hypertension and thyroid Family history: Gout as above General Appearance: Alert and conversant, cooperative. Speaks in full sentences, no respiratory distress. Normal range of motion of both knees and ankles. No calf tenderness on either side. Compartments are soft in both lower legs. No lymphangitis or red streaking. Patient has warmth redness and swelling over the dorsum of the foot on the left MTP joint. Normal motor sensory and dorsalis pedis pulse. She has pain with flexion and extension of the great toe but not with any other toe. There is no crepitus or eschar or fluctuance or pain to palpation of the area of swelling except over her MTP joint of the left great toe but even that is minimal. She has more pain with movement and with palpation. No other skin rash. Emergency Department course/MDM: Joint aspiration: Left great toe MTP joint aspiration discussed and consented. Standard sterile technique and 1 mL of 1% lidocaine without epinephrine. Less than 1 mL of yellow and blood tinged synovial fluid extracted sent to the lab for testing. Left foot x-ray personally interpreted as negative for fracture or other abnormality. I think DVT or acute infection or septic joint or cellulitis or fasciitis is unlikely. I think gout is much more likely. Indomethacin and prednisone discussed and consented, clinical follow-up with primary care doctor. 1445: per lab a few WBC, RBC present, no crystals seen, sample too small for further conclusions. Smoking Status: Never smoked Constitutional: Initial Vital Signs Temperature (C) 36.7 C 06/06/17 13:39 Heart Rate 70 01/09/18 13:39 Respiratory Rate 16 06/06/17 13:39 Blood Pressure 148/82 H 06/06/17 13:39 O2 Sat (%) 95 06/06/17 13:39 O2 Delivery Mode Room Air Allergies/Adverse Reactions: morphine Allergy (Mild, Verified 06/06/17 13:37) GI oxycodone [From Percocet] Allergy (Mild, Verified 06/06/17 13:37) GI Home Medications: Medication Instructions Recorded Aspirin EC [Aspirin EC 81 mg (*)] 81 mg PO HS 02/19/17 Cholecalciferol (Vitamin D3) 2,000 unit PO HS 02/19/17 [Vitamin D3] Cyanocobalamin (Vitamin B-12) 1,000 mcg PO HS 02/19/17 [B-12] Estrogens,Conjugated [Premarin 0.625 mg PO DAILY 02/19/17 0.625 MG (*)] Herbals/Supplements -Info Only 1 ea PO DAILY 02/19/17 Levothyroxine [Synthroid 125 mcg 125 mcg PO DAILY06 02/19/17 (*)] Lisinopril/Hydrochlorothiazide 1 tab PO DAILY 02/19/17 [Zestoretic 20-25 mg Tablet] Multivitamins [Multivitamin (*)] 1 each PO HS 02/19/17 guaiFENesin [Mucinex 600 MG (*)] 600 mg PO DAILY 02/19/17 Acetaminophen [Tylenol 325mg (*)] 650 mg PO Q4HRS PRN tab 02/23/17 Indomethacin [Indocin 25 mg (*)] 50 mg PO TID #20 cap 06/06/17 predniSONE 10 mg PO AD #15 tab 06/06/17 MDM/Departure - MDM Imaging Results: Imaging Impressions Foot X-Ray 06/06/17 13:56 Impression: Negative. No evidence of osteomyelitis. - Depart Disposition: Home, Routine, Self-Care Clinical Impression: Gout Qualifiers: Gout site: toe Gout etiology: unspecified cause Chronicity: acute Laterality: left Qualified Code(s): M10.9 - Gout, unspecified Condition: Good Instructions: Gout (ED) Prescriptions: Indomethacin [Indocin 25 mg (*)] 50 mg PO TID #20 cap predniSONE 10 mg PO AD #15 tab Referrals: Melanie Henriquez MD [Primary Care Provider] - As per Instructions
== END 2017-06-06 14:45 | disposition home or self-care (01) ==
DX: M10.9 Gout, unspecified (principal); Z79.82 Long term (current) use of aspirin

== ENCOUNTER → 2017-07-26 | Outpatient (CLI) | payer OTHER, BC | LOC: FIMAGING 10:07 | PROVIDERS: ATTEND Nurse Practitioner Adult Health | DX: Z12.31 Encounter for screening mammogram for malignant neoplasm of breast (principal) ==

== ENCOUNTER 2017-08-23 02:01 | Emergency (ER) | payer OTHER, BC ==
[2017-08-23] MEDS ORDERED: NS 1,000 ML IV ONE ×2 (02:03→04:04)
--- NOTE | 2017-08-23 02:03 | EDPHY ---
H & P Time Seen by Provider: 08/23/17 02:03 HPI/ROS: HPI CHIEF COMPLAINT: Abdominal pain HISTORY OF PRESENT ILLNESS: Patient very pleasant 67-year-old female presents emergency room with left-sided abdominal pain/left lower later rib pain. NO chest Pain, NO Sob.. She states this started around 8 o'clock last night she describes it as a very severe pain 10/10 sharp stabbing as well as achy in the left abdomen. Sometimes goes to her left back. She denies any vomiting. Denies diarrhea. Denies urinary symptoms. Denies dysuria or blood in her urine. Denies fever. She could not get comfortable last night decided come the emergency room for evaluation. Denies pleuritic pain. Denies productive cough. Past Medical History: Gout, chronic left knee pain Past Surgical History: Hysterectomy Social History: Denies drugs alcohol tobacco. Family History: Noncontributory ROS REVIEW OF SYSTEMS: A comprehensive 10 point review of systems is otherwise negative aside from elements mentioned in the history of present illness. Exam Constitutional appears well nontoxic no acute distress, triage nursing summary reviewed, vital signs reviewed, awake/alert. Eyes normal conjunctivae and sclera, EOMI, PERRLA. HENT normal inspection, atraumatic, moist mucus membranes, no epistaxis, neck supple/ no meningismus, no raccoon eyes. Respiratory clear to auscultation bilaterally, normal breath sounds, no respiratory distress, no wheezing. Cardiovascular chest wall left lateral lower chest wall: Tender palpation. No crepitus. No step-offs. Reproducible on exam worse when she goes to sit up. rate normal, regular rhythm, no murmur, no edema, distal pulses normal. Gastrointestinal tender palpation left upper quadrant left lower, left CVA tenderness, no rebound, no guarding, normal bowel sounds, no distension, no pulsatile mass. Genitourinary mild left CVA tenderness Musculoskeletal no midline vertebral tenderness, full range of motion, no calf swelling, no tenderness of extremities, no meningismus, good pulses, neurovascularly intact. Skin pink, warm, & dry, no rash, skin atraumatic. Neurologic awake, alert and oriented x 3, AAOx3, moves all 4 extremities equally, motor intact, sensory intact, CN II-XII intact, normal cerebellar, normal vision, normal speech. Psychiatric normal mood/affect. Heme/Lymph/Immune no lymphadenopathy. Differential diagnosis includes but is not limited to and in no particular order : Bowel obstruction, appendicitis, gallbladder disease, diverticulitis, colitis , enteritis, perforated viscus, gastritis, GERD, esophagitis, urinary tract infection, pyelonephritis, kidney stones Medical Decision Making: Plan for this patient IV establishment IV fluid bolus 1 L normal saline, IV Zofran 4 mg for nausea, IV Dilaudid 1 mg for acute pain control, check basic blood work, CT scan abdomen pelvis with IV contrast and re- evaluate. Re-evaluation: CT scan abdomen pelvis with IV contrast called to me by Dr. Chance, this does not show any acute inflammatory process. No evidence of colitis, diverticulitis, bowel obstruction or bowel prior. Nothing to explain severe left-sided abdominal pain. 0308: Blood work and CT scan reviewed. Negative troponin. Normal electrolytes. No chest pain or shortness of breath. Urinalysis clean. EKG interpretation by me on record in [email or web address] system. Impression time of EKG 3:00 a.m. Sinus rhythm rate of 65 Q-waves noted V1 V2 V3 no ST elevation no ST depression Q-wave noted lead 3 AVF. No old EKG to compare this to. CT angiogram of the chest shows no evidence of pulmonary embolism possible early left lingula infiltrate. Please see full dictation report from Dr. Chance. EKG interpretation by me on record in [email or web address] system. Impression this is a repeat EKG 5:36 a.m., sinus rhythm rate of 59 again there Q-wave seen inferior leads 3 and AVF, as well as V1 V2 V3. No ST elevation or ST depression. 0643AM: Re-examination this time this patient has reproducible left lower rib chest wall pain on exam. No chest pain or shortness of breath. She complains when she goes to sit up she gets discomfort. Additionally when you press on her left lower lateral rib she has discomfort. Additionally when she goes to sit up she gets left musculoskeletal pain. I do not feel this is a cardiac issue she has had 2-troponins. EKGs did not show any acute ischemia. She had a CT scan of her chest and abdomen pelvis did not reveal any acute pathology causing her pain. However in her lingula there was a haziness. I will cover with azithromycin just to make sure she does not have pneumonia. I have discussed return precautions with her she understands return emergency room if develops chest pain, shortness of breath, fever I do recommend Tylenol Motrin alternating every 4-6 hours for pain control. Additionally will add Mcnabb. Return precautions discussed she understands. Discussed return precautions understands return if she has worsening pain fever vomiting abdominal pain rib pain or develops chest pain or shortness of breath Antibiotic as prescribed azithromycin. Prescription provided for Mcnabb and ibuprofen. Source: Patient - Medical/Surgical History Hx Asthma: No Hx Chronic Respiratory Disease: No Hx Diabetes: No Hx Cardiac Disease: No Hx Renal Disease: No Hx Cirrhosis: No Hx Alcoholism: No Hx HIV/AIDS: No Hx Splenectomy or Spleen Trauma: No Other PMH: HTN. thyroid - Social History Smoking Status: Never smoked Constitutional: Initial Vital Signs Temperature (C) 37.0 C 08/23/17 02:05 Heart Rate 82 08/23/17 02:05 Respiratory Rate 18 08/23/17 02:05 Blood Pressure 182/93 H 08/23/17 02:05 O2 Sat (%) 92 08/23/17 02:05 O2 Delivery Mode Room Air O2 (L/minute) 2 Allergies/Adverse Reactions: morphine Allergy (Mild, Verified 08/23/17 02:12) GI oxycodone [From Percocet] Allergy (Mild, Verified 08/23/17 02:12) GI Home Medications: Medication Instructions Recorded Aspirin EC [Aspirin EC 81 mg (*)] 81 mg PO HS 02/19/17 Cholecalciferol (Vitamin D3) 2,000 unit PO HS 02/19/17 [Vitamin D3] Cyanocobalamin (Vitamin B-12) 1,000 mcg PO HS 02/19/17 [B-12] Estrogens,Conjugated [Premarin 0.625 mg PO DAILY 02/19/17 0.625 MG (*)] Herbals/Supplements -Info Only 1 ea PO DAILY 02/19/17 Levothyroxine [Synthroid 125 mcg 125 mcg PO DAILY06 02/19/17 (*)] Lisinopril/Hydrochlorothiazide 1 tab PO DAILY 02/19/17 [Zestoretic 20-25 mg Tablet] Multivitamins [Multivitamin (*)] 1 each PO HS 02/19/17 guaiFENesin [Mucinex 600 MG (*)] 600 mg PO DAILY 02/19/17 Acetaminophen [Tylenol 325mg (*)] 650 mg PO Q4HRS PRN tab 02/23/17 Indomethacin [Indocin 25 mg (*)] 50 mg PO TID #20 cap 06/06/17 Allopurinol 100 MG (*) 08/23/17 Azithromycin [Zithromax] 250 mg PO DAILY #6 tab 08/23/17 Hydrocodone/APAP 5/325 [Mcnabb 1 - 2 tab PO Q4H PRN #10 tab 08/23/17 5/325] Ibuprofen [Motrin (*)] 800 mg PO Q6-8PRN #10 tab 08/23/17 Losartan-Hctz 100-12.5 mg Tab 08/23/17 PREMARIN 08/23/17 Medical Decision Making - Data Points Laboratory Results: Laboratory Results 08/23/17 02:10 08/23/17 02:10 08/23/17 08/23/17 08/23/17 05:37 02:18 02:10 WBC RBC Hgb POC Hgb 14.6 gm/dL gm/dL (12.6-16.3) Hct POC Hct 43 % % (38-47) MCV MCH MCHC RDW Plt Count MPV Neut % (Auto) Lymph % (Auto) [place] % (Auto) Eos % (Auto) Baso % (Auto) Nucleat RBC Rel Count Absolute Neuts (auto) Absolute Lymphs (auto) Absolute Monos (auto) Absolute Eos (auto) Absolute Basos (auto) Absolute Nucleated RBC Immature Gran % Immature Gran # D-Dimer 0.79 ug/mLFEU H ug/mLFEU (0.00-0.50) POC Sodium 141 mEq/L mEq/L (135-145) Sodium POC Potassium 3.6 mEq/L mEq/L (3.3-5.0) Potassium POC Chloride 102 mEq/L mEq/L (97-110) Chloride Carbon Dioxide Anion Gap POC BUN 20 mg/dL mg/dL (7-23) BUN Creatinine POC Creatinine 0.9 mg/dL mg/dL (0.6-1.0) Estimated GFR Glucose POC Glucose 123 mg/dL H mg/dL (70-100) Calcium Total Bilirubin Conjugated Bilirubin Unconjugated Bilirubin AST ALT Alkaline Phosphatase Troponin I < 0.012 ng/mL ng/mL (0.000-0.034) Total Protein Albumin Lipase Urine Color Urine Appearance Urine pH Ur Specific [place] Urine Protein Urine Ketones Urine Blood Urine Nitrate Urine Bilirubin Urine Urobilinogen Ur Leukocyte Esterase Urine Glucose 08/23/17 08/23/17 08/23/17 02:10 02:10 02:07 WBC 14.28 10^3/uL H 10^3/uL (3.80-9.50) RBC 4.68 10^6/uL 10^6/uL (4.18-5.33) Hgb 13.7 g/dL g/dL (12.6-16.3) POC Hgb Hct 41.7 % % (38.0-47.0) POC Hct MCV 89.1 fL fL (81.5-99.8) MCH 29.3 pg pg (27.9-34.1) MCHC 32.9 g/dL g/dL (32.4-36.7) RDW 14.2 % % (11.5-15.2) Plt Count 259 10^3/uL 10^3/uL (150-400) MPV 10.3 fL fL (8.7-11.7) Neut % (Auto) 70.3 % % (39.3-74.2) Lymph % (Auto) 18.6 % % (15.0-45.0) [place] % (Auto) 8.0 % % (4.5-13.0) Eos % (Auto) 1.8 % % (0.6-7.6) Baso % (Auto) 0.7 % % (0.3-1.7) Nucleat RBC Rel Count 0.0 % % (0.0-0.2) Absolute Neuts (auto) 10.05 10^3/uL H 10^3/uL (1.70-6.50) Absolute Lymphs (auto) 2.66 10^3/uL 10^3/uL (1.00-3.00) Absolute Monos (auto) 1.14 10^3/uL H 10^3/uL (0.30-0.80) Absolute Eos (auto) 0.25 10^3/uL 10^3/uL (0.03-0.40) Absolute Basos (auto) 0.10 10^3/uL 10^3/uL (0.02-0.10) Absolute Nucleated RBC 0.00 10^3/uL 10^3/uL (0-0.01) Immature Gran % 0.6 % % (0.0-1.1) Immature Gran # 0.08 10^3/uL 10^3/uL (0.00-0.10) D-Dimer POC Sodium Sodium 142 mEq/L mEq/L (135-145) POC Potassium Potassium 3.9 mEq/L mEq/L (3.5-5.2) POC Chloride Chloride 102 mEq/L mEq/L (97-110) Carbon Dioxide 24 mEq/l mEq/l (22-31) Anion Gap 16 mEq/L mEq/L (8-16) POC BUN BUN 19 mg/dL mg/dL (7-23) Creatinine 0.7 mg/dL mg/dL (0.6-1.0) POC Creatinine Estimated GFR > 60 Glucose 112 mg/dL H mg/dL (70-100) POC Glucose Calcium 9.6 mg/dL mg/dL (8.5-10.4) Total Bilirubin 0.6 mg/dL mg/dL (0.1-1.4) Conjugated Bilirubin 0.3 mg/dL mg/dL (0.0-0.5) Unconjugated Bilirubin 0.3 mg/dL mg/dL (0.0-1.1) AST 24 IU/L IU/L (14-46) ALT 38 IU/L IU/L (9-52) Alkaline Phosphatase 83 IU/L IU/L (38-126) Troponin I < 0.012 ng/mL ng/mL (0.000-0.034) Total Protein 7.7 g/dL g/dL (6.3-8.2) Albumin 4.4 g/dL g/dL (3.5-5.0) Lipase 91 IU/L IU/L (23-300) Urine Color EDITA Urine Appearance MODERATELY TURBID Urine pH 5.0 (5.0-7.5) Ur Specific [place] 1.017 (1.002-1.030) Urine Protein NEGATIVE (NEGATIVE) Urine Ketones NEGATIVE (NEGATIVE) Urine Blood NEGATIVE (NEGATIVE) Urine Nitrate NEGATIVE (NEGATIVE) Urine Bilirubin NEGATIVE (NEGATIVE) Urine Urobilinogen NEGATIVE EU EU (0.2-1.0) Ur Leukocyte Esterase NEGATIVE (NEGATIVE) Urine Glucose NEGATIVE (NEGATIVE) Medications Given: Discontinued Medications Hydromorphone HCl (Dilaudid) 1 mg IVP EDNOW ONE Stop: 08/23/17 02:11 Last Admin: 08/23/17 02:19 Dose: 1 mg Sodium Chloride (Ns) 1,000 mls @ 0 mls/hr IV EDNOW ONE; Wide Open PRN Reason: Protocol Stop: 08/23/17 02:04 Last Admin: 08/23/17 02:15 Dose: 1,000 mls Sodium Chloride (Ns) 1,000 mls @ 0 mls/hr IV ONCE ONE PRN Reason: Wide Open Stop: 08/23/17 04:05 Last Admin: 08/23/17 04:43 Dose: 1,000 mls Ondansetron HCl (Zofran) 4 mg IVP EDNOW ONE Stop: 08/23/17 02:11 Last Admin: 08/23/17 02:19 Dose: 4 mg Ondansetron HCl (Zofran) 4 mg IVP EDNOW ONE Stop: 08/23/17 05:27 Last Admin: 08/23/17 05:27 Dose: 4 mg Point of Care Test Results: 08/23/17 02:18 POC Sodium 141 POC Potassium 3.6 POC Chloride 102 POC BUN 20 POC Creatinine 0.9 POC Glucose 123 H Departure - Departure Disposition: Home, Routine, Self-Care Clinical Impression: Rib pain on left side Abdominal pain Qualifiers: Abdominal location: left upper quadrant Qualified Code(s): R10.12 - Left upper quadrant pain Condition: Good Instructions: Acute Nausea and Vomiting (ED), Abdominal Pain (ED), Musculoskeletal Pain (ED) Additional Instructions: 1. Ice your chest. 2. Anti-inflammatory pain medication. 3. Mcnabb for pain control. 4. Return precautions discussed 5. Antibiotic as prescribed. Referrals: Melanie Henriquez MD [Primary Care Provider] - As per Instructions Prescriptions: Azithromycin [Zithromax] 250 mg PO DAILY #6 tab Hydrocodone/APAP 5/325 [Mcnabb 5/325] 1 - 2 tab PO Q4H PRN #10 tab PRN Reason: Pain, Moderate Ibuprofen [Motrin (*)] 800 mg PO Q6-8PRN #10 tab
[2017-08-23] MEDS ORDERED: ONDANSETRON 4 MG/2 ML VIAL IVP ONE ×2 (02:10→05:26)
[2017-08-23] MEDS ORDERED: HYDROmorphONE/DILAUDID 2 MG/ML INJ IVP ONE (02:10)
[2017-08-23 02:19] LABS: PLATELET COUNT 259 10^3/uL (150-400)
[2017-08-23] MEDS ORDERED: IOPAMIDOL (ISOVUE-300) 100 ML BTL ONE (02:20)
--- NOTE | 2017-08-23 03:03 | CPEKG ---
Heart Rate: 65 RR Interval: 923 P-R Interval: 168 QRSD Interval: 104 QT Interval: 424 QTC Interval: 441 P [place]: 19 QRS [place]: -26 T Wave [place]: -3 EKG Severity - ABNORMAL ECG - EKG Impression: SINUS RHYTHM EKG Impression: PROBABLE INFERIOR INFARCT, AGE INDETERMINATE EKG Impression: CONSIDER ANTERIOR INFARCT Electronically Signed By: Alton Jim 23-Aug-2017 07:12:37
[2017-08-23] MEDS ORDERED: IOPAMIDOL (ISOVUE 370) 100 ML BTL IV ONE (04:01)
[2017-08-23] MEDS ORDERED: ONDANSETRON 4 MG/2 ML VIAL ONE ×2 (05:14→05:22)
--- NOTE | 2017-08-23 05:38 | CPEKG ---
Heart Rate: 59 RR Interval: 1017 P-R Interval: 192 QRSD Interval: 102 QT Interval: 440 QTC Interval: 436 P [place]: 32 QRS [place]: -33 T Wave [place]: -3 EKG Severity - ABNORMAL ECG - EKG Impression: SINUS RHYTHM EKG Impression: PROBABLE INFERIOR INFARCT, AGE INDETERMINATE EKG Impression: CONSIDER ANTERIOR INFARCT Electronically Signed By: Alton Jim 23-Aug-2017 07:12:37
[2017-08-23 06:50] VITALS: BP 125/76
== END 2017-08-23 07:13 | disposition home or self-care (01) ==
DX: R07.81 Pleurodynia (principal); R10.12 Left upper quadrant pain; I10 Essential (primary) hypertension; E86.9 Volume depletion, unspecified; Z79.82 Long term (current) use of aspirin; Z90.710 Acquired absence of both cervix and uterus
CPT/HCPCS: 71275; 74177; 93005; 96361; 96374; 96375; 96376; 99285; J1170; J2405; Q9967; 82947-QW

== ENCOUNTER → 2018-08-29 | Outpatient (CLI) | payer OTHER, BC | LOC: FIMAGING 14:02 | PROVIDERS: ATTEND Nurse Practitioner Adult Health | DX: Z12.31 Encounter for screening mammogram for malignant neoplasm of breast (principal); Z13.820 Encounter for screening for osteoporosis; Z78.0 Asymptomatic menopausal state ==